=== PATIENT | male | born 1980 | race African-American/Black ===

== ENCOUNTER 2021-05-07 11:24 | Emergency (ER) | payer BC, OTHER ==
[~2021-05-07] VITALS: Ht 183 cm; Wt 120.6 kg
[2021-05-07 11:28] VITALS: BP 149/66
--- NOTE | 2021-05-07 11:43 | ED Lower Extremity ---
General Chief Complaint: Lower Extremity Stated Complaint: R KNEE PAIN Nursing Triage Note: PT AMB TO FT 3 W C/O RIGHT KNEE PAIN SX FRIDAY, SWELLING NOTED, PT DENIES INJURY. A&OX4. Source: patient Exam Limitations: no limitations History of Present Illness Date Seen by Provider: May 07, 2021 Time Seen by Provider: 11:41 Initial Comments Patient is a 41-year-old male who presents ED with right anterior and posterior knee pain. Pain started Friday. Was driving from [place]. Started having swelling and pain to his knee after several hours of driving. Pain is described as dull and achy. Denies any calf pain or thigh pain. No specific trauma. Denies of any specific injury resulted in any type of skin abrasion or skin tear of some sort. No fever, nausea vomiting, diarrhea fever, chills, chest pain or shortness of breath. Patient does have adequate range of motion. No history of gout. Has been taking ibuprofen and applying ice without significant improvement. Allergies and Home Medications Patient Home Medication List Home Medication List Reviewed: Yes Cephalexin (Cephalexin) 500 Mg Tablet, 500 MG PO QID Prescribed by: EVERETT ROBERTS on 05/07/21 1329 Hydrocodone/Acetaminophen (Hydrocodone-Acetamin 5-325 mg) 1 Each Tablet, 1 TAB PO Q4H PRN for PAIN-MODERATE (5-7) Prescribed by: EVERETT ROBERTS on 05/07/21 1330 Naproxen (Naproxen) 500 Mg Tablet.dr, 500 MG PO BID Prescribed by: EVERETT ROBERTS on 05/07/21 1329 Review of Systems Constitutional: No chills, No diaphoresis EENTM: No blurred vision, No double vision, No eye pain, No mouth pain, No mouth swelling Respiratory: No cough, No short of breath Cardiovascular: No chest pain, No edema Gastrointestinal: No abdominal pain, No diarrhea, No nausea, No vomiting Genitourinary: No decreased output, No discharge Musculoskeletal: joint pain, joint swelling, muscle pain All Other Systems Reviewed Negative Unless Noted: Yes Past Schefdh-Jdeqmz-Vdwfhe Hx Patient Social History Tobacco Use?: No Use of E-Cig and/or Vaping dev: No Substance use?: No Alcohol Use?: No Immunizations Up To Date Influenza Vaccine Up-to-Date: No; Not Current First/Initial COVID19 Vaccinat: 2020 Second COVID19 Vaccination Jarrett: 2020 Third COVID19 Vaccination Date: NONE COVID19 Vaccine Plant Ecologist: HYACINTH Physical Exam Vital Signs Vital Signs - First Documented 05/07/21 11:28 Temp 36.1 Pulse 101 Resp 20 B/P (MAP) 149/66 (93) Pulse Ox 98 O2 Delivery Room Air Capillary Refill : Less Than 3 Seconds Height, Weight, BMI Height: '" Weight: lbs. oz. kg; 36.00 BMI Method: General Appearance: WD/WN, no apparent distress HEENT: PERRL/EOMI, normal ENT inspection, TMs normal, pharynx normal Neck: non-tender, full range of motion, supple, normal inspection Cardiovascular: regular rate, rhythm, no edema, no gallop, no JVD Respiratory: chest non-tender, lungs clear, normal breath sounds, no respiratory distress, no accessory muscle use Gastrointestinal: normal bowel sounds, non tender, soft Back: normal inspection, no CVA tenderness Knees: right knee normal range of motion, right knee bone tenderness, right knee soft tissue tenderness, right knee swelling Ankles: bilateral ankle non-tender, bilateral ankle normal inspection, bilateral ankle normal range of motion Neurologic/Tendon: normal sensation, normal motor functions, normal tendon functions Skin: normal color, warm/dry Progress/Results/Core Measures Results/Orders Lab Results Laboratory Tests Test 05/07/21 12:09 Range/Units White Blood Count 7.2 4.3-11.0 10^3/uL Red Blood Count 4.92 4.30-5.52 10^6/uL Hemoglobin 15.3 13.3-17.7 g/dL Hematocrit 44 40-54 % Mean Corpuscular Volume 90 80-99 fL Mean Corpuscular Hemoglobin 31 25-34 pg Mean Corpuscular Hemoglobin Concent 35 32-36 g/dL Red Cell Distribution Width 12.0 10.0-14.5 % Platelet Count 315 130-400 10^3/uL Mean Platelet Volume 9.9 9.0-12.2 fL Immature Granulocyte % (Auto) 0 % Neutrophils (%) (Auto) 66 42-75 % Lymphocytes (%) (Auto) 22 12-44 % Monocytes (%) (Auto) 9 0-12 % Eosinophils (%) (Auto) 2 0-10 % Basophils (%) (Auto) 1 0-10 % Neutrophils # (Auto) 4.8 1.8-7.8 10^3/uL Lymphocytes # (Auto) 1.6 1.0-4.0 10^3/uL Monocytes # (Auto) 0.6 0.0-1.0 10^3/uL Eosinophils # (Auto) 0.2 0.0-0.3 10^3/uL Basophils # (Auto) 0.1 0.0-0.1 10^3/uL Immature Granulocyte # (Auto) 0.0 0.0-0.1 10^3/uL Erythrocyte Sedimentation Rate 41 H 0-15 MM/HR Sodium Level 138 135-145 MMOL/L Potassium Level 3.9 3.6-5.0 MMOL/L Chloride Level 100 98-107 MMOL/L Carbon Dioxide Level 29 21-32 MMOL/L Anion Gap 9 5-14 MMOL/L Blood Urea Nitrogen 22 H 7-18 MG/DL Creatinine 1.98 H 0.60-1.30 MG/DL Estimat Glomerular Filtration Rate 42 BUN/Creatinine Ratio 11 Glucose Level 101 70-105 MG/DL Calcium Level 9.5 8.5-10.1 MG/DL Corrected Calcium 9.3 8.5-10.1 MG/DL Total Bilirubin 0.9 0.1-1.0 MG/DL Aspartate Amino Transf (AST/SGOT) 17 5-34 U/L Alanine Aminotransferase (ALT/SGPT) 29 0-55 U/L Alkaline Phosphatase 67 40-136 U/L C-Reactive Protein High Sensitivity 0.72 H 0.00-0.50 MG/DL Total Protein 8.2 6.4-8.2 GM/DL Albumin 4.3 3.2-4.5 GM/DL My Orders Orders - OSCAR FULLER Knee, Right, 3 Views (05/07/21 11:40) Us Venous Lower Ext Rt (05/07/21 11:40) Cbc With Automated Diff (05/07/21 11:47) Comprehensive Metabolic Panel (05/07/21 11:47) Erythrocyte Sedimentation Rate (05/07/21 11:47) Hs C Reactive Protein (05/07/21 11:47) Vital Signs/I&O 05/07/21 11:28 Temp 36.1 Pulse 101 Resp 20 B/P (MAP) 149/66 (93) Pulse Ox 98 O2 Delivery Room Air Blood Pressure Mean: 93 Departure Communication (PCP) X-ray of the left knee concerning for a fluid collection in the anterior knee potentially in the infrapatellar fat pad. Ultrasound was negative for DVT but did noted a fluid collection inferior anterior superficial of the right patella. Mild warmth with normal active range of motion the right knee. Does not appear to be septic arthritis. Normal white blood count afebrile with slight elevated ESR of 41 CRP 0.72. No specific trauma. Recent travel from [place]. Reports similar symptoms in the past. No specific laxity. No significant erythema noted. Possible bursitis secondary location and the swelling. This was discussed with Dr. Crowder orthopedic who felt like this is more of a bursitis re commend NSAIDs ice Angel wrap. This may lead to infection such as affected bursitis will discharge with antibiotics secondary to his long drive if symptoms worsen. Return precaution were discussed with patient. Impression Primary Impression: Knee pain Disposition: HOME, SELF-CARE Condition: Stable Departure-Patient Inst. Decision time for Depature: 13:28 Referrals: NO,LOCAL PHYSICIAN (PCP) Primary Care Physician ANN CROWDER MD Patient Instructions: Knee Pain Scripts Hydrocodone/Acetaminophen (Hydrocodone-Acetamin 5-325 mg) 1 Each Tablet 1 TAB PO Q4H PRN for PAIN-MODERATE (5-7), #8 TAB Prov: OSCAR FULLER 05/07/21 Naproxen (Naproxen) 500 Mg Tablet.dr 500 MG PO BID for 7 Days, #14 TAB Prov: OSCAR FULLER 05/07/21 Cephalexin (Cephalexin) 500 Mg Tablet 500 MG PO QID for 7 Days, #28 TAB Prov: OSCAR FULLER 05/07/21 OSCAR FULLER May 07, 2021 11:43
[2021-05-07 12:26] LABS: BASOPHILS # (AUTO) 0.1 10^3/uL (0.0-0.1); BASOPHILS % (AUTO) 1 % (0-10); EOSINOPHILS # (AUTO) 0.2 10^3/uL (0.0-0.3); EOSINOPHILS % (AUTO) 2 % (0-10); HEMATOCRIT 44 % (40-54); HEMOGLOBIN 15.3 g/dL (13.3-17.7); LYMPHOCYTES # (AUTO) 1.6 10^3/uL (1.0-4.0); LYMPHOCYTES % (AUTO) 22 % (12-44); MEAN CORPUSCULAR HEMOGLOBIN 31 pg (25-34); MEAN CORPUSCULAR HGB CONC 35 g/dL (32-36); MEAN CORPUSCULAR VOLUME 90 fL (80-99); MEAN PLATELET VOLUME 9.9 fL (9.0-12.2); MONOCYTES # (AUTO) 0.6 10^3/uL (0.0-1.0); MONOCYTES % (AUTO) 9 % (0-12); NEUTROPHILS # (AUTO) 4.8 10^3/uL (1.8-7.8); NEUTROPHILS % (AUTO) 66 % (42-75); PLATELET COUNT 315 10^3/uL (130-400); WHITE BLOOD COUNT 7.2 10^3/uL (4.3-11.0)
--- NOTE | 2021-05-07 12:35 | Diagnostic Imaging Report ---
KNEE, RIGHT, 3 VIEWS COMPARISON: None available. INDICATION: Anterior right knee pain. TECHNIQUE: Non-weight bearing AP, oblique, and lateral views of the right knee. FINDINGS: No fracture or traumatic malalignment. 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 There is abnormal soft tissue attenuation in the infrapatellar fat pad, which could represent inflammation or edema. No knee joint effusion. IMPRESSION: 1. No acute fracture. 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 2. Abnormal soft tissue attenuation in the infrapatellar fat pad is likely due to edema or inflammation. Dictated by: Dictated on workstation # [id number]
--- NOTE | 2021-05-07 12:41 | Diagnostic Imaging Report ---
INDICATION: Knee pain. History of recent long distance travel COMPARISON: None TECHNIQUE: Duplex, rodríguez-scale and color-flow imaging of the right lower extremity venous system was performed. FINDINGS: The common femoral vein, superficial femoral vein, profunda femoris, and popliteal veins are normal. These vessels show normal compressibility, color flow, and doppler augmentation. The deep calf veins, although not very well seen, demonstrate no distinct intraluminal thrombus. Focal fluid collection is identified superficially involving the anterior right knee distal to the patella. IMPRESSION: 1. No evidence of DVT in the right lower extremity. 2. Focal fluid collection of the anterior knee inferior to the patella. This could be on the basis of small hematoma. Correlation with history of traumatic injury of this area is recommended. Dictated by: Dictated on workstation # [id number]
[2021-05-07 12:46] LABS: ALBUMIN 4.3 GM/DL (3.2-4.5); BILIRUBIN,TOTAL 0.9 MG/DL (0.1-1.0); CALCIUM 9.5 MG/DL (8.5-10.1); CREATININE SERUM 1.98 MG/DL (0.60-1.30); POTASSIUM 3.9 MMOL/L (3.6-5.0); TOTAL PROTEIN 8.2 GM/DL (6.4-8.2)
[2021-05-07 12:57] LABS: ERYTHROCYTE SEDIMENTATION RATE 41 MM/HR (0-15)
[2021-05-07] MEDS ORDERED: ACHD5005 PO (13:29)
[2021-05-07] MEDS ORDERED: CEPH500T PO (13:29)
[2021-05-07] MEDS ORDERED: NAPR500T8 PO (13:29)
== END 2021-05-07 13:49 | disposition home or self-care (01) ==
LOC: ER 11:26
DX: M25.461 Effusion, right knee (principal); R70.0 Elevated erythrocyte sedimentation rate; R79.82 Elevated C-reactive protein (CRP)
CPT/HCPCS: 36415; 73562; 80053; 85025; 85652; 86141